=== PATIENT | male | born 1980 | race African-American/Black ===

== ENCOUNTER 2020-08-31 20:42 | Emergency (ER) | payer OTHER, SELFPAY ==
[2020-08-31] VITALS (21 sets, daily range): BP systolic 160–196; BP diastolic 87–123; PULSE 61–70; RESP 16–25; TEMP 37.1; O2SAT 97–100
--- NOTE | ~2020-08-31 | XR_ITS ---
EXAMINATION: XR chest 1V portable INDICATION: Cough, COVID 19 positive TECHNIQUE: Portable AP chest at 0928 hours COMPARISON: None available FINDINGS: There are patchy bilateral airspace opacities. No pleural effusion or pneumothorax is ident ified. The cardiomediastinal silhouette is normal. IMPRESSION: 1. Patchy bilateral airspace opacities, likely COVID pneumonia given the clinical history. Reviewed, dictated and finalized at location B. IMPRESSION: 1. Patchy bilateral airspace opacities, likely COVID pneumonia given the clinic al history.
--- NOTE | 2020-08-31 21:34 | ED.GENADULT ---
HPI - General Adult General Chief complaint: Unspecified Stated complaint: wants to be tested for covid Time Seen by Provider: 08/31/20 21:23 Source: patient History of Present Illness HPI narrative: Patient is a 40 y/o male complaining of cough for last 3 days. He states that he is cough up some mucous. There is no known alleviating or exacerbating factor. He has no fever. He also has some diarrhea and bodyache. He noticed that he lost sense of taste and smell. He found that his friend with whom he has been hanging out all week tested positive for COVID today. He wants to be checked for COVID. Related Data Home Medications Medication Instructions Recorded Confirmed No Home Medications 08/31/20 08/31/20 Allergies Allergy/AdvReac Type Severity Reaction Status Date / Time No Known Allergies Allergy Verified 08/31/20 21:05 Review of Systems Constitutional: Constitutional: Denies chills, Denies fever(s), Denies headache(s) and Denies weakness Eyes: Eyes: Denies blurry vision ENT: Denies headache(s), Denies neck pain and Reports other (lost taste and smell) Cardiovascular: Cardiovascular: Denies chest pain and Denies dyspnea Respiratory: Respiratory: Reports cough and Denies dyspnea Gastrointestinal: Gastrointestinal: Denies abdominal pain, Reports diarrhea, Denies nausea and Denies vomiting Genitourinary: Genitourinary: Denies hematuria and Denies dysuria Musculoskeletal: Musculoskeletal: Denies back pain, Reports myalgias and Denies neck pain Neurologic: Denies headache(s) and Denies weakness [facility] Social History Social History Gender identity (if verbalized by the patient): Male Exam Const: General: no acute distress and well developed Orientation/consciousness: oriented to person, oriented to place, oriented to time and patient oriented x3 HENMT: Head: normocephalic Ears: external ears normal General nose exam: Normal external nose present Eyes: General: appearance normal, both eyes and all related structures Conjunctivae: conjunctivae normal Neck: Neck: normal visual inspection and full ROM Chest: Chest palpation & inspection: normal inspection of the chest and no tenderness Resp: Effort & Inspection: normal respiratory effort Auscultation: clear to auscultation bilaterally Cardio: Rate: regular rate Rhythm: regular rhythm GI: GI Palp: No abdominal tenderness and Yes Soft to palpation Skin: General skin exam: normal color and turgor normal Neuro: General: oriented to person, oriented to place, oriented to time and patient oriented x3 Cognition (Neuro): normal cognition Extrem: General: normal to inspection, full ROM and no pedal edema Psych: Appearance: grossly normal Mental Status: mental status grossly normal Affect: normal affect Course Reevaluation(s) Reevaluation #1: I informed patient that his BP is high and he needs to follow up with PCP for reassessment possibly starting medication for hypertension. Date: 08/31/20 Time: 23:15 Vital Signs Vital signs: Vital Signs Temperature 37.1 C 08/31/20 20:44 Pulse Rate 70 08/31/20 20:44 Respiratory Rate 20 08/31/20 20:44 Blood Pressure 196/123 H 08/31/20 20:44 Pulse Oximetry 99 08/31/20 20:44 Temperature 37.1 C 08/31/20 20:44 Pulse Rate 64 08/31/20 22:46 Respiratory Rate 20 08/31/20 22:46 Blood Pressure 160/87 H 08/31/20 22:46 Pulse Oximetry 99 08/31/20 22:46 Medical Decision Making Vital Signs Vital Signs: Vital Signs Temperature 37.1 C 08/31/20 20:44 Pulse Rate 70 08/31/20 20:44 Respiratory Rate 20 08/31/20 20:44 Blood Pressure 196/123 H 08/31/20 20:44 Pulse Oximetry 99 08/31/20 20:44 Temperature 37.1 C 08/31/20 20:44 Pulse Rate 64 08/31/20 22:46 Respiratory Rate 20 08/31/20 22:46 Blood Pressure 160/87 H 08/31/20 22:46 Pulse Oximetry 99 08/31/20 22:46 Lab Data Result diagrams: 08/31/20
[2020-08-31 22:06] LABS: Basophils Percent Auto 0.4 % (0.2-1.2); Hematocrit 49.7 % (42.0-52.0); Hemoglobin 16.1 g/dL (14.0-18.0); Lymphocytes Absolute Auto 1.02 K/mm3 (0.9-3.2); Lymphocytes Percent Auto 38.1 % (18.3-44.2); Mean Corpuscular HGB Conc 32.4 g/dl (32-36); Mean Corpuscular Hemoglobin 29.7 pg (26-34); Mean Corpuscular Volume 91.5 fl (80-100); Mean Platelet Volume 10.4 fl (7.4-10.4); Monocytes Absolute Auto 0.3 K/mm3 (0.1-0.6); Monocytes Percent Auto 12.7 % (2.6-8.5); Neutrophils Absolute Auto 1.3 K/mm3 (1.3-6.7); Neutrophils Percent Auto 48.8 % (45.5-73.1); Platelet Count Result 154 k/mm3 (150-375); Red Blood Count 5.43 M/mm3 (4.6-6.20); Red Cell Distribution Width 13.3 % (11.5-14.5); White Blood Count 2.7 K/mm3 (4.5-10.0)
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
[2020-08-31 22:16] LABS: Alanine Aminotransferase 28 U/L (4-50); Albumin Level 4.3 g/dL (3.5-5.1); Alkaline Phosphatase 50 U/L (38-126); Anion Gap 10 mmol/L (8-16); Aspartate Amino Transferase 37 U/L (17-59); Bilirubin,Total 0.6 mg/dL (0.2-1.3); Blood Urea Nitrogen 8 mg/dL (9-20); Calcium 9.3 mg/dL (8.4-10.2); Carbon Dioxide 30 mmol/L (22-30); Chloride 99 mmol/L (98-107); Estimated CRCL calculation 115 ml/min; Estimated Glomerular Filt Rate > 60; Glucose 86 mg/dL (65-110); Potassium 3.5 mmol/L (3.4-5.0); Sodium 139 mmol/L (137-145)
[2020-08-31 23:07] LABS: Add Urine Microscopic? YES; Appearance Urine Clear (Clear); Bilirubin Urine Negative (Negative); Blood Urine 1+ (Negative); Color Urine Yellow (Yellow); Glucose Urine UA Negative (Negative); Ketones Urine Negative (Negative); Leukocyte Esterase Ur Negative LEU/UL (Negative); Mucus Urine Rare /lpf; Nitrate Urine Negative (Negative); Protein Urine 2+ mg/dL (Negative); Specific Grav Ur 1.021 (1.001-1.035); Squamous Epithelial Cell Urine Rare /hpf (Few); WBC Urine 0-3 /hpf
[2020-09-01 20:21] LABS: SARS-CoV-2 RNA PCR Positive
== END 2020-08-31 23:39 | disposition home or self-care (01) ==
PROVIDERS: Emergency Provider Emergency Medicine; PCP Family Medicine
DX: U07.1 COVID-19 (principal); I10 Essential (primary) hypertension
CPT/HCPCS: 36415; 71045; 80053; 81001; 85025; 99283; C9803; U0003; U0005

== ENCOUNTER 2021-01-13 12:37 | Emergency (ER) | payer SELFPAY ==
--- NOTE | 2021-01-13 12:48 | PC.NURSE ---
PT HAS DECIDED TO GO OVER TO A [facility] SO HE CAN BE SEEN QUICKER
== END 2021-01-14 01:53 | disposition left against medical advice (07) ==
PROVIDERS: PCP Family Medicine
DX: Z53.21 Procedure and treatment not carried out due to patient leaving prior to being seen by health care provider (principal)
CPT/HCPCS: 99199

== ENCOUNTER 2021-11-16 15:22 | Emergency (ER) | payer OTHER, SELFPAY ==
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
[2021-11-16 15:50] VITALS: BP 170/75; PULSE 69; RESP 17; TEMP 36.6; O2SAT 100
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
== END 2021-11-16 18:29 | disposition home or self-care (01) ==
PROVIDERS: Emergency Provider Nurse Practitioner Family; PCP Family Medicine
DX: S92.311A Displaced fracture of first metatarsal bone, right foot, initial encounter for closed fracture (principal); V43.52XA Car driver injured in collision with other type car in traffic accident, initial encounter
CPT/HCPCS: 73630; 99284